=== PATIENT | female | born 1980 | race Caucasian/White ===

== ENCOUNTER 2017-09-13 12:24 | Emergency (ER) | payer OTHER, SELFPAY ==
[2017-09-13 12:25] VITALS: BP 169/110; PULSE 80; RESP 16; O2SAT 97; BMI 26.6
--- NOTE | 2017-09-13 12:40 | RAD_ITS ---
STUDY: X-RAY CHEST REASON FOR EXAM: Female, 37 years old. Chest pain for 2 days TECHNIQUE: Single view of the chest was obtained COMPARISON: April 06, 2013 chest radiograph FINDINGS: No lung consolidation, pleural effusion or pneumothorax. Calcified granuloma in the left upper lobe. Cardiac size within normal limits. Osseous structures demonstrate no acute abnormalities. IMPRESSION: No evidence of focal airspace disease. Electronically Signed: Dewey Frazier, at 13:31 EDT Tel , Service support , RAD/Chest 1 View (Portable)
--- NOTE | 2017-09-13 12:40 | EKG12_ITS ---
Test Reason : CP Blood Pressure : / mmHG Vent. Rate : 076 BPM Atrial Rate : 076 BPM P-R Int : 142 ms QRS Dur : 084 ms QT Int : 392 ms P-R-T Axes : 068 025 026 degrees QTc Int : 441 ms Normal sinus rhythm Normal ECG Confirmed by VERN WALSH MD ([id number]), newspaper photo editor JAIR OCONNOR ([id number]) on 09/15/2017 2:10:52 PM Referred By: ABHIJEET Confirmed By:VERN WALSH MD
[2017-09-13] MEDS: Aspirin 81 MG TAB.CHEW 324 MG PO (12:46)
[2017-09-13] MEDS: 0.9% Normal Saline 1,000 ML 150 ML IV (12:46)
[2017-09-13 12:51] LABS: Absolute Lymphocyte Count 1.77 X10^3/ul (0.83-4.51); Absolute Neutrophil Count 4.3 X10^3/uL (2.0-7.7); Basophil# 0.02 X10^3/uL; Basophil% 0.3 % (0-1); Eosinophil# 0.17 X10^3/uL; Eosinophils% 2.6 % (0-5); Hematocrit 42.4 % (37-47); Lymphocyte # 1.77 X10^3/ul (4.0); Lymphocyte % 26.7 % (19-41); Mean Corpuscular Hgb 27.9 pg (27.0-32.0); Mean Corpuscular Volume 84.6 fL (81-99); Mean Platelet Vol. 11.2 fl (6.2-12.0); Neutrophil # 4.25 X10^3/uL (2.7-7.7); Neutrophil % 64.2 % (47-70); POSITIVE COUNT NO; POSITIVE DIFFERENTIAL NO; POSITIVE MORPHOLOGY NO; Platelet Count 283 K/mm3 (150-450); RBC Distribution Width CV 14.6 % (11.6-14.6); Red Blood Count 5.01 M/mm3 (4.2-5.4); White Blood Count 6.6 K/mm3 (4.4-11.0)
[2017-09-13 13:01] LABS: D-Dimer Quantitative (DVT/PE) < 0.27 FEU/ug/m (0.27-0.49)
[2017-09-13 13:07] LABS: Anion Gap 6 (5-15); BUN 7 mg/dL (7-18); BUN/Creat Ratio 8.8 RATIO (10-20); Calcium,Total 9.1 mg/dL (8.5-10.1); Chloride 107 mmol/L (98-107); Creatinine, Serum 0.79 mg/dL (0.55-1.02); EST Glomerular Filtration Rate 87 mL/min (>60); Est Glom Filt Rate - Afr Amer 105 mL/min (>60); Estimated Creatinine Clearance 94.82 ml/min; Glucose 102 mg/dL (74-106); Potassium 3.4 mmol/L (3.5-5.1); Sodium Level 140 mmol/L (136-145)
--- NOTE | 2017-09-13 13:42 | ED.VISSUMM ---
- ER Visit Summary Date of Service: 09/13/17 Chief Complaint: Chest pain [] History of Present Illness: The patient is a 37 F [presents the emergency department chest discomfort that started 2 days ago. Patient had intermittent symptoms for the last 2 days lasting anywhere from a few seconds up to 20 minutes. Symptoms are not brought on by activity or exertion. She describes kind of a cold sensation and a burning initially started in the right side of her chest and now has migrated to the left side of her chest and into her left arm. Patient denies any shortness of breath. She denies any nausea or vomiting. She denies any diaphoresis. Patient initially thought it might be indigestion so she took Prilosec which really did not seem to help her symptoms. Patient had similar symptoms years ago that seemed to just resolve on their own.] Physical Examination: [HEENT-PERRLA, EOMI. Cranial nerves II through XII grossly intact. TMs clear. Mucous membranes moist. No adenopathy. Cardiovascular-regular rate and rhythm without murmur or ectopy Lungs-clear to auscultation, chest wall stable without crepitus or subcu emphysema Abdomen-normoactive bowel sounds, soft, nontender, no rebound or rigidity, no peritoneal signs. Extremities-intact ?4, normal range of motion, normal pulses, atraumatic] Test Results: [EKG obtained arrival shows sinus rhythm with a ventricular rate of 76 bpm with no acute ST segment changes. CBC with differential was normal. Chemistries were normal. Troponin was less than 0.02. D-dimer was normal less than 0.27. Chest x-ray showed nothing acute.] Emergency Department Course and Treatment: [While in the emergency department patient did receive aspirin.] Treatment Plan: [Patient's ANTONIO risk score is a 0. Her chest pain is atypical and this point do not feel it is cardiac. Patient advised to follow-up with her primary care physician within next 3-5 days.] Disposition: [Discharged home in stable condition. Patient advised to return if worsening pain, increasing shortness of breath, or condition should worsen in any way.] Impression: [Chest pain-atypical] This note was generated with [employer] software. It may contain incorrect words, spelling, and punctuation that were not noted in review of the chart prior to signing ED Disposition - Plan for ED Patient: Chief Complaint: Chest Pain Referrals: Stanley Jean Baptiste DO [Primary Care Provider] -
--- NOTE | 2017-09-13 13:45 | ED.DEP ---
ED Disposition - Plan for ED Patient: Chief Complaint: Chest Pain Instructions: ED Chest Pain Atypical Unkn Cause Referrals: Stanley Jean Baptiste DO [Primary Care Provider] - 3-5 Days
[2017-09-13 14:10] VITALS: BP 146/69; PULSE 63; RESP 16; O2SAT 98
== END 2017-09-13 14:14 | disposition home or self-care (01) ==
LOC: ED 12:50
PROVIDERS: Emergency Provider Emergency Medicine; Family Provider Student in an Organized Health Care Education/Training Program; PCP Student in an Organized Health Care Education/Training Program
DX: R07.89 Other chest pain (principal); I10 Essential (primary) hypertension; E78.00 Pure hypercholesterolemia, unspecified
CPT/HCPCS: 71045; 80048; 84484; 85025; 85379; 93005; 96360; 99284; J7030; A4216

== ENCOUNTER 2018-03-09 09:03 | Emergency (ER) | payer OTHER, SELFPAY ==
[2018-03-09 09:04] VITALS: BP 137/88; PULSE 79; RESP 14; TEMP 36.7; O2SAT 98; BMI 26.8
--- NOTE | 2018-03-09 09:27 | EKG12_ITS ---
Test Reason : CP Blood Pressure : / mmHG Vent. Rate : 067 BPM Atrial Rate : 067 BPM P-R Int : 142 ms QRS Dur : 082 ms QT Int : 422 ms P-R-T Axes : 071 026 038 degrees QTc Int : 445 ms Normal sinus rhythm Normal ECG Confirmed by ELENI STEPHENS, CIARA ([id number]), book or script editor JAIR OCONNOR ([id number]) on 03/12/2018 1:03:29 PM Referred By: SAM/VIOLETA Confirmed By:CIARA KNOWLES MD
--- NOTE | 2018-03-09 09:27 | RAD_ITS ---
STUDY: X-RAY CHEST REASON FOR EXAM: Female, 37 years old. Several day history of left-sided chest pain. TECHNIQUE: PA and lateral views of the chest. COMPARISON: Comparison is made with prior examination dated September 13, 2017. FINDINGS: The lungs are clear and expanded. Scattered calcified granulomas. There is no demonstrated pleural abnormality. Normal size heart. Normal mediastinum and geoff. Normal visualized pulmonary arteries. Normal visualized aortic arch and descending thoracic aorta. Normal visualized thoracic spine. Normal visualized ribs, clavicles, and shoulders. There is no demonstrated abnormality of the visualized soft tissue structures of the upper abdomen. RAD/Chest PA and Lateral IMPRESSION: Normal x-ray examination of the chest. Electronically Signed: Derrell Casey MD at 10:33 EDT Tel [phone], Service support ,
[2018-03-09] MEDS: Aspirin 81 MG TAB.CHEW 324 MG PO (09:39)
[2018-03-09 09:58] LABS: Absolute Lymphocyte Count 2.02 X10^3/ul (0.83-4.51); Absolute Neutrophil Count 3.3 X10^3/uL (2.0-7.7); Basophil# 0.01 X10^3/uL; Basophil% 0.2 % (0-1); Eosinophil# 0.19 X10^3/uL; Eosinophils% 3.2 % (0-5); Hematocrit 42.8 % (37-47); Lymphocyte # 2.02 X10^3/ul (4.0); Lymphocyte % 33.7 % (19-41); Mean Corp Hgb Conc 32.7 g/gl (32-36); Mean Corpuscular Hgb 28.9 pg (27.0-32.0); Mean Corpuscular Volume 88.4 fL (81-99); Mean Platelet Vol. 11.4 fl (6.2-12.0); Monocyte# 0.49 X10^3/uL; Monocyte% 8.2 % (0-10); Neutrophil # 3.28 X10^3/uL (2.7-7.7); Neutrophil % 54.5 % (47-70); POSITIVE COUNT NO; POSITIVE DIFFERENTIAL NO; POSITIVE MORPHOLOGY NO; Platelet Count 297 K/mm3 (150-450); RBC Distribution Width CV 13.4 % (11.6-14.6); RBC Distribution Width SD 43.3 fl (35.1-43.9); Red Blood Count 4.84 M/mm3 (4.2-5.4)
[2018-03-09 10:08] LABS: Anion Gap 6 (5-15); BUN 13 mg/dL (7-18); BUN/Creat Ratio 16.3 RATIO (10-20); Calcium,Total 8.8 mg/dL (8.5-10.1); Chloride 104 mmol/L (98-107); EST Glomerular Filtration Rate 86 mL/min (>60); Est Glom Filt Rate - Afr Amer 104 mL/min (>60); Estimated Creatinine Clearance 93.63 ml/min; Glucose 87 mg/dL (74-106); Potassium 3.4 mmol/L (3.5-5.1); Sodium Level 138 mmol/L (136-145)
--- NOTE | 2018-03-09 10:45 | ED.DCSUM_ITS ---
- ER Visit Summary Date of Service: 03/09/18 Chief Complaint: Chest pain History of Present Illness: The patient is a 37 F presenting for evaluation secondary chest pain. Patient reports that over the course the last 5 days she has been dealing with chest pain. She reports that this is been relatively con tinuous. It is no exacerbating relieving factors. She reports that it is a left-sided and substernal continuous aching stabbing type sensation. Associated with some mild nausea. She denies any shortness of breath associated with this. Patient denies any overlying skin rashes recent infectious signs or symptoms such as fever cough. She reports that she had been taking some antacids for this that had not really alleviated the symptoms. Physical Examination: Vital signs are within normal limits, patient is afebrile. General: Patient is well-nourished well-developed and in no acute distress. Head: Normocephalic, atraumatic Eyes: Pupils equal round and reactive bilaterally, extra occular motion intact bialterally ENT: Moist mucous membranes Neck: Supple, no lymphadenopathy, no JVD, no meningismus CVS: Heart regular rate and rhythm, no murmurs, rubs or gallops, radial pulses 2+ bilaterally Resp: Respirations nondistressed, lung sounds clear bilaterally Abdomen: Soft, nontender, nondistended, no palpable masses, normal bowel sounds Back: Nontender Extremities: Nontender, atraumatic, active full range of motion, no peripheral edema Skin: warm, no rashes, no petechia Neuro: Alert and oriented x 4, CN 2-12 intact, no lateralizing neurological defecits Psyc: Normal affect Test Results: EKG demonstrates sinus rhythm at [address] segments normal T waves normal intervals no evidence of WPW or Brugada morphology. CBC chemistry and troponin are negative. PA and lateral chest x-ray are found to be within normal limits per my personal interpretation. Emergency Department Course and Treatment: Patient presented for evaluation secondary chest pain. Patient is relatively low risk that she has been having continuous pain for 5 days I believe she can be ruled out with a single troponin. Workup as noted above is negative. Patient's heart score is 1. I do not believe that further cardiac workup is indicated. Patient is PERC negative do not believe that there is any indication for workup for pulmonary embolism. Patient likely has an element of potentially some costochondritis. She will be started on a course of NSAIDs. She will follow-up with primary care. Disposition: Discharge Impression: 1. Chest pain This note was generated with [employer] dictation software. It may contain incorrect words, spelling, and punctuation that were not noted in review of the chart prior to signing ED Disposition - Plan for ED Patient: Disposition: Home or Assisted Living Chief Complaint: Chest Pain Diagnosis: Costochondral chest pain Instructions: ED Chest Pain Costochondritis Prescriptions: Naproxen [Naprosyn] 500 mg PO BID PRN #20 tab Referrals: Stanley Jean Baptiste DO [Primary Care Provider] - 1-2 Weeks
[2018-03-09 10:58] VITALS: BP 140/92; PULSE 62; RESP 16; O2SAT 100
== END 2018-03-09 11:02 | disposition home or self-care (01) ==
PROVIDERS: Emergency Provider Emergency Medicine; Family Provider Student in an Organized Health Care Education/Training Program; PCP Student in an Organized Health Care Education/Training Program
DX: R07.89 Other chest pain (principal); I10 Essential (primary) hypertension; E78.00 Pure hypercholesterolemia, unspecified; D68.51 Activated protein C resistance; Z79.899 Other long term (current) drug therapy
CPT/HCPCS: 71046; 80048; 84484; 85025; 93005; 99285; A4216

== ENCOUNTER → 2018-07-21 13:28 | Outpatient (CLI) | payer OTHER, SELFPAY ==
[2018-07-27 11:27] LABS: HPV HC, High Risk Negative (Negative)
== END ==
PROVIDERS: Visit Provider Obstetrics & Gynecology
DX: Z12.4 Encounter for screening for malignant neoplasm of cervix (principal)
CPT/HCPCS: 87624; 88175; G0145

== ENCOUNTER → 2020-11-02 07:15 | Outpatient (CLI) | payer OTHER, SELFPAY ==
--- NOTE | 2020-11-02 07:40 | BI_ITS ---
MAMMOGRAPHY - BILATERAL SCREENING REASON FOR EXAM: Female, 40 years old. Routine annual screening examination. PERTINENT HISTORY: Non-contributory. TECHNIQUE: Digital bilateral breast suzie (3D mammographic acquisition) in the CC and MLO projections. 2-D mediolateral oblique (MLO) and craniocaudad (CC) views of both breasts were obtained. CAD: Full Field Digital Mammography with Computer Added Detection was performed. COMPARISON: None. Baseline examination. FINDINGS: Breast Composition: The breasts are heterogeneously dense, which may obscure small masses. There are no dominant masses or suspicious calcifications. No other significant abnormalities are identified. BI/SCRN MAMM (CAD)W/SUZIE BILAT IMPRESSION: Negative screening mammogram. Yearly followup mammogram recommended. (A) ASSESSMENT CATEGORY: BIRADS Category 1: Negative. A letter regarding these results will be sent to the patient by the facility within 30 days. Approximately 10% of breast cancers are not detected by mammography. A normal mammogram should not delay biopsy of a clinically suspicious abnormality. [id number] Electronically Signed: Derrell Casey MD at 8:31 EDT , Service support ,
== END ==
PROVIDERS: PCP Student in an Organized Health Care Education/Training Program; Referring Provider Obstetrics & Gynecology; Visit Provider Obstetrics & Gynecology
DX: Z12.31 Encounter for screening mammogram for malignant neoplasm of breast (principal)
CPT/HCPCS: 77063; 77067

== ENCOUNTER → 2021-01-14 17:07 | Outpatient (CLI) | payer OTHER, SELFPAY ==
[2021-01-18 20:12] LABS: HPV APTIMA, High Risk Negative (Negative)
== END ==
PROVIDERS: PCP Student in an Organized Health Care Education/Training Program; Visit Provider Obstetrics & Gynecology
DX: Z12.4 Encounter for screening for malignant neoplasm of cervix (principal)
CPT/HCPCS: 87624; 88175; G0145

== ENCOUNTER → 2022-06-20 | Outpatient (CLI) | payer OTHER, SELFPAY ==
--- NOTE | 2022-06-20 08:28 | BI_ITS ---
MAMMOGRAPHY - BILATERAL SCREENING REASON FOR EXAM: Female, 41 years old. Routine annual screening examination. PERTINENT HISTORY: Non-contributory. TECHNIQUE: Digital bilateral breast suzie (3D mammographic acquisition) in the CC and MLO projections. 2-D mediolateral oblique (MLO) and craniocaudad (CC) views of both breasts were obtained. CAD: Full Field Digital Mammography with Computer Added Detection was performed. COMPARISON: Comparison is made with prior study dated 11/02/2020. FINDINGS: Breast Composition: The breasts are heterogeneously dense, which may obscure small masses. There are no dominant masses or suspicious calcifications. No other significant abnormalities are identified. There has been no significant change since the prior study. BI/SCRN MAMM (CAD)W/SUZIE BILAT IMPRESSION: Stable bilateral screening mammogram. Yearly follow-up mammogram recommended. (A) ASSESSMENT CATEGORY: BIRADS Category 1: Negative. A letter regarding these results will be sent to the patient by the facility within 30 days. Approximately 10% of breast cancers are not detected by mammography. A normal mammogram should not delay biopsy of a clinically suspicious abnormality. [id number] Electronically Signed: Derrell Casey MD at 10:26 EST ,
== END | disposition home or self-care (01) ==
LOC: OPBI 08:27
PROVIDERS: PCP Student in an Organized Health Care Education/Training Program; Referring Provider Nurse Practitioner Women's Health; Visit Provider Nurse Practitioner Women's Health
DX: Z12.31 Encounter for screening mammogram for malignant neoplasm of breast (principal)
CPT/HCPCS: 77063; 77067

== ENCOUNTER → 2023-11-25 | Outpatient (CLI) | payer OTHER, SELFPAY ==
[2023-11-30 21:07] LABS: HPV APTIMA, High Risk Negative (Negative)
== END | disposition home or self-care (01) ==
PROVIDERS: PCP Student in an Organized Health Care Education/Training Program; Referring Provider Nurse Practitioner Family; Visit Provider Nurse Practitioner Family
DX: Z12.4 Encounter for screening for malignant neoplasm of cervix (principal)
CPT/HCPCS: 87624; 88175; G0145

== ENCOUNTER → 2023-12-08 | Outpatient (CLI) | payer OTHER, SELFPAY ==
[2023-12-08 16:18] LABS: hCG Titer Quant., Serum 725 mIU/mL (1-3)
== END | disposition home or self-care (01) ==
LOC: LAB 14:09
PROVIDERS: PCP Student in an Organized Health Care Education/Training Program; Visit Provider Nurse Practitioner Women's Health
DX: O09.299 Supervision of pregnancy with other poor reproductive or obstetric history, unspecified trimester (principal); Z3A.00 Weeks of gestation of pregnancy not specified
CPT/HCPCS: 36415; 84702

== ENCOUNTER → 2023-12-10 | Outpatient (CLI) | payer OTHER, SELFPAY ==
[2023-12-10 10:02] LABS: hCG Titer Quant., Serum 1176 mIU/mL (1-3)
== END | disposition home or self-care (01) ==
LOC: LAB 08:27
PROVIDERS: PCP Student in an Organized Health Care Education/Training Program; Visit Provider Nurse Practitioner Women's Health
DX: O09.299 Supervision of pregnancy with other poor reproductive or obstetric history, unspecified trimester (principal); Z3A.00 Weeks of gestation of pregnancy not specified
CPT/HCPCS: 36415; 84702

== ENCOUNTER → 2023-12-21 | Outpatient (CLI) | payer OTHER, SELFPAY ==
--- NOTE | 2023-12-21 07:29 | US_ITS ---
HISTORY: viability. LMP 11/04/2023. TECHNIQUE: Transvaginal pelvic ultrasound was performed. 104 images. COMPARISON: None. FINDINGS: UTERUS: 10.4 x 5.1 x 9.2 cm. RIGHT OVARY: 1.6 x 1.7 x 1.9 cm. No adnexal masses. LEFT OVARY: 2 x 2 x 3.1 cm. 1.2 cm corpus luteal cyst. FREE FLUID: None. INTRAUTERINE GESTATIONAL SAC: Single. Mean sac diameter 1.5 cm corresponding to 6 weeks 2 days. YOLK SAC: 3 mm cyst. POLE: [place]-rump length 6 mm corresponding to 6 weeks 4 days. ESTIMATED DELIVERY DATE: 08/12/2024. HEART MOTION: 117 bpm. US/Transvaginal w/Preg US IMPRESSION: Single intrauterine with an estimated gestational age of 6 weeks 4 days and heart motion demonstrated. Electronically Signed: Deepti George MD at 8:43 EDT ,
== END | disposition home or self-care (01) ==
LOC: US 07:28
PROVIDERS: PCP Student in an Organized Health Care Education/Training Program; Referring Provider Obstetrics & Gynecology; Visit Provider Obstetrics & Gynecology
DX: O09.299 Supervision of pregnancy with other poor reproductive or obstetric history, unspecified trimester (principal); Z3A.00 Weeks of gestation of pregnancy not specified
CPT/HCPCS: 76817

== ENCOUNTER → 2024-01-11 | Outpatient (CLI) | payer OTHER, SELFPAY ==
[2024-01-14 06:09] LABS: Chlamydia By Nucleic Acid AMP Negative (Negative); Gonococcus By Nucleic Acid AMP Negative (Negative)
== END | disposition home or self-care (01) ==
LOC: LABSPEC 17:07
PROVIDERS: PCP Student in an Organized Health Care Education/Training Program; Referring Provider Obstetrics & Gynecology; Visit Provider Obstetrics & Gynecology
DX: O09.90 Supervision of high risk pregnancy, unspecified, unspecified trimester (principal); Z3A.00 Weeks of gestation of pregnancy not specified
CPT/HCPCS: 87491; 87591

== ENCOUNTER 2024-01-12 10:34 | Day surgery (SDC) | payer OTHER, SELFPAY ==
[2024-01-12] VITALS (7 sets, daily range): BP systolic 110–132; BP diastolic 68–83; PULSE 74–85; RESP 16–20; TEMP 36.6–37; O2SAT 96–98; BMI 27.9
--- NOTE | 2024-01-12 10:50 | HP.PCM_ITS ---
History and Physical Date of Admission: 01/12/24 Intake Vital Signs 11/25/2415:21 01/10/2414:19 01/10/2414:19 Height 5 ft 6 in 5 ft 6 in 5 ft 6 in Weight: 177 lb 8 oz BMI 28.6 BP 131/83 H Intake Visit Reasons: new ob Nitroglycerin Supervisor Required: No Is patient in pain?: No Allergies No Known Allergies Allergy (Verified 01/11/24 14:18) Medications ?Medication ?Instructions ?Recorded ?Confirmed ?Type cholecalciferol (vitamin D3) 50 5,000 unit PO DAILY 03/12/22 01/05/24 History mcg (2,000 unit) capsule lisinopril 10 mg tablet 20 mg PO DAILY 03/12/22 01/05/24 History vitamin B complex (B 1 tab PO DAILY 03/12/22 01/05/24 History Complex-Vitamin B12 tablet) fluoxetine 10 mg capsule 60 mg PO DAILY 11/25/23 01/05/24 History PNV 153-FA 400 mcg-om3 35 mg-dha tab PO DAILY 01/05/24 01/05/24 History 25 mg-epa 5 mg-fish oil chew tablet Last Menstrual Period: 11/04/23 Zika: Zika virus screening: Negative : No PFSH PFSH Medical History Seasonal allergies Vitamin D deficiency Hypertension Missed with demise before 20 completed weeks of gestation Surgical History H/O dilation and curettage History of tonsillectomy Family History Mother Heart disease Social History adopted: No household members: spouse and children number of children: 2 current occupational status: employed current occupation: [employer] Representative current occupational exposures/hazards: No pets and animals: Yes pets and animals: dog(s) history of recent travel: Yes ([place] in November) out of state: Yes out of country: No sexually active: Yes Smoking Status: Never smoker alcohol intake: never substance use type: does not use well-balanced diet: daily or most days caffeine: Yes Type: coffee Number of servings: 1 eating out: 1-3 times/week during the past year weight has: decreased > 10 lbs what type of physical activity do you participate in: walking frequency: 1-2 times per week duration: 15-30 minutes/day rich/yarsanism: None seatbelt use: always do you feel safe at home: Yes additional social history: Jorge- Dentist History 9 Elective abortions Hx Para 2 Spontaneous abortions 6 Hx # Term Pregnancies Ectopic pregnancies Hx # Pregnancies Multiple births # of living children 2 Past Pregnancies Del. Date Name GA/Weeks Outcome Route Bth Weight Gen Labor Lgth Anesthesia Del Locatn Provider FOB 07/04/08 Mateus 39 live - full term 8#6oz [facility] epidural [facility] Jorge 06/18/10 Fabrizio 38 live - full term 8#2oz Mal [facility] Delivery Date: 07/04/08 Last Updated by: [place] Virk elective [facility] Delivery Date: 06/18/10 Last Updated by: [place] Virk elective [facility] HPI new ob Details: NANNTETE FORD is a 43 year old @ 9 weeks 6 days iup who presents for New OB visit. Unfortunately upon exam, there appears to be no heart tones. She is now electing for a suction dilation and curettage. She has known factor V leiden deficiency and has a history of 6 prior miscariages. OB Visit FERNIE Calculator Estimated Delivery Date Method Current WG Current Estimate 08/10/24 LMP (Certain) 9w 5d Comments: HIV: Urine Culture: Sequential Screen: NIPT Screen: Estimated Due Date: 08/10/24 Menstrual History Last Menstrual Period: 11/04/23 Reported LMP: definite Normal amount/duration: Yes Frequency in days: 27-29 On hormonal BC at conception: No hCG+: 12/02/23 Antepartum Record Genetic Screening: Congenital Heart Defect: Other, Neural Tube Defect: Other, Hemoglobinopathy Or Carrier: Patient (Factor V), Cystic Fibrosis: Other, Chromosome Abnormality: Other, Sen-Sachs: Other, Hemophilia: Other, Intellectual Disability/Autism: Other, Recurrent Loss/Stillbirth: Patient (6 miscarriages), Other Structural Defect: Other, Other Genetic Disease: Other and Maternal Metabolic Disorder: Other Infection History: Live with someone with TB or Exposed to TB: No, Patient or Partner has history of Genital Herpes: No, Rash or Viral illness since last mentrual period: No, Prior GBS-Infected child: No, History of STD: No, HIV Infection: No, History of Hepatitis: No, Recent travel outside of [place]: No, Concern for hepatitis exposure: No, Varicella immune: Yes (immune) and Covid Vaccinated: Yes (Moderna, 1 Booster) Medical History Medical History: Positive: Hypertension, Psychiatric (anxiety), Seasonal allergies, Body Masker surgery (LEEP 1999, 3 D&C's), Operations/hospitalizations (Tonsilectomy), History of abnormal pap (1999. last pap 11/2023 Neg/Neg) and Other (stress incontinence) and Negative: Diabetes, Heart disease, Auto-immune disorder, Kidney disease/UTI, Neurologic/epilepsy, Depression/ depression, Hepatitis/liver disease, Varicosities/phlebitis, Thyroid dysfunction, Trauma/domestic violence, History of blood transfusions, D (Rh) Sensitized, Pulmonary (e.g.,TB,Asthma), Drug/latex allergies/reactions, Breast, Anesthetic complications, Uterine anomaly/obdulia, Infertility, Anti-retroviral treatment and Relevant family history ACOG First Trimester First Trimester: Discussed ROS Const All systems reviewed & are unremarkable except as noted in H Resp Reports system reviewed and no additional complaints, except as documented and Denies cough GI Reports as per HPI Psych Reports system reviewed and no additional complaints, except as documented Exam Const General: cooperative, healthy appearing, comfortable and no acute distress Resp Effort & Inspection: normal respiratory effort General: bimanual renal exam normal bilaterally External Female Exam: normal appearance of the urethra Urethra: normal appearance of the urethra Speculum Exam - Vagina: normal appearance of the vagina Speculum Exam - Cervix: normal appearance of the cervix Bimanual Exam- Adnexa, other: normal adnexae and normal Pelvic Support: normal Skin General: no rashes or lesions noted Psych Appearance: grossly normal Speech and Movement: speech and movement normal Coding Level of Care Code OB Routine Diagnoses Factor V deficiency D68.2 Anxiety F41.9 Supervision of high-risk O09.90 Z34.90 Advanced maternal age (AMA), 40 years or greater Early stage of Z34.90 History of miscarriage, currently O09.299 Mixed stress and urge urinary incontinence N39.46 Migraine with aura and without status migrainosus, not intractable G43.109 Intractability: not intractable Status migrainosus presence: without status migrainosus Vitamin D deficiency E55.9 Hypertension, unspecified type I10 Hypertension type: unspecified Assessment and Plan Assessment and Plan (1) Factor V deficiency: Status: Acute (2) Anxiety: Status: Acute (3) Supervision of high-risk : Status: Acute Comment: , FERNIE 08/10/24, PC MateusFabrizio mercado, Jorge (4) : Status: Acute Comment: elects NIPT- NO GENDER (5) Advanced maternal age (AMA), 40 years or greater: Status: Acute (6) Early stage of : Status: Acute (7) History of miscarriage, currently : Status: Acute Comment: 6 miscarriages- Two 2nd trimester losses (8) Mixed stress and urge urinary incontinence: Status: Acute (9) Migraine with aura: Status: Acute Qualifiers: Intractability: not intractable Status migrainosus presence: without status migrainosus Qualified Code(s): G43.109 - Migraine with aura, not intractable, without status migrainosus (10) Vitamin D deficiency: Status: Acute (11) Hypertension: Status: Chronic Qualifiers: Hypertension type: unspecified Qualified Code(s): I10 - Essential (primary) hypertension Orders: Orders CBC W/Diff, Automated 01/05/24 O09.90 - Supervision of high risk , unspecified, unspecified trimester Type & Screen 01/05/24 O09.90 - Supervision of high risk , unspecified, unspecified trimester Plan After discussing the patient's diagnosis and treatment plan options, patient wishes to proceed with surgical management. I have discussed with the patient the risks, benefits, and alternatives of the procedure which include but are not limited to risks of anesthesia, bleeding, infection, possible damage to bowel, bladder, or surrounding vasculature which could lead to additional surgery to evaluate any complications. Patient agrees to procedure and wishes to proceed. ACOG/uptodate references given for additional information regarding procedure. plan suction dilation and curettage.
[2024-01-12] MEDS: Doxycycline 100 MG CAPSULE PO (11:10)
[2024-01-12] MEDS: Lactated Ringers 1,000 ML 15 ML IV (11:10)
[2024-01-12 11:14] LABS: Hematocrit 38.4 % (37-47); Hemoglobin 12.6 g/dL (12.0-15.0); Mean Corp Hgb Conc 32.8 g/dL (32-36); Mean Corpuscular Hgb 29.7 pg (27.0-32.0); Mean Corpuscular Volume 90.6 fL (81-99); Mean Platelet Vol. 10.2 fl (6.2-12.0); Platelet Count 312 K/mm3 (150-450); RBC Distribution Width CV 13.9 % (11.6-14.6); RBC Distribution Width SD 46.2 fl (35.1-43.9); Red Blood Count 4.24 M/mm3 (4.2-5.4); White Blood Count 7.5 K/mm3 (4.4-11.0)
--- NOTE | 2024-01-12 11:50 | PCM.PRE.AN2 ---
ASA Classification* ASA Classification ASA Classification: 2 Assessment & Plan Anesthesia* Anesthesia Assessment Anesthesia Assessment: Discussed sedation and/or anesthesia options, risks, benefits, and alternatives with patient/parents/legal guardian/POA. Questions invited. The patient/parents/legal guardian/POA seems to understand and agrees to proceed with anesthesia plan. Reviewed the physical assessment, medical history, allergy history and patient home medications list prior to surgery/procedure/anesthetic and documented any changes. Performed airway and anesthesia risk assessments. Anesthesia Type Anesthesia Type: MAC History Source History Obtained from:: Patient and Chart Anesthesia Focused Assessment* Oxygen Delivery Method: Room Air Airway Assessment Mouth opens: >3 cm Mallampati Score: II Teeth Condition: Intact Neck Range of motion (ROM): Full ROM Focused Labs Anesthesia Preop lab: CBC WBC 7.5 K/mm3 (4.4-11.0) 01/12/24 11:03 RBC 4.24 M/mm3 (4.2-5.4) 01/12/24 11:03 Hgb 12.6 g/dL (12.0-15.0) 01/12/24 11:03 Hct 38.4 % (37-47) 01/12/24 11:03 Plt Count 312 K/mm3 (150-450) 01/12/24 11:03 CHEMISTRY Potassium 3.4 mmol/L (3.5-5.1) L 03/09/18 09:10 Sodium 138 mmol/L (136-145) 03/09/18 09:10 BUN 13 mg/dL (7-18) 03/09/18 09:10 Creatinine 0.80 mg/dL (0.55-1.02) 03/09/18 09:10 Glucose 87 mg/dL (74-106) 03/09/18 09:10 TSH 1.32 uIU/mL (0.358-3.74) 12/25/16 10:59 COAG PT 13.0 SECONDS (11.7-14.9) 01/22/17 11:05 HCG, Quant 1176 mIU/mL (1-3) H 12/10/23 08:28 Pre-Assessment Diagnosis/Proposed Procedure Planned Operative Procedure(s): D&C SUCTION Anesthesia History Anesthesia History - sales development consultant: Anesthesia History - sales development consultant Hx Hospitalization No 01/11/24 15:33 Any Problems With Anesthesia No 01/11/24 15:33 Cholinesterase deficiency No 01/11/24 15:33 You/Your Family Experience No 01/11/24 15:33 fever (hyperthermia) with Relationship Recent Exposure to Contagious No 01/22/17 10:55 Disease Does patient have nerve No 01/11/24 15:33 stimulator Patient instructed to have device shut off --Does patient have Pacemaker or ICD? When Was Last Pacemaker Check QUESTION #4 FULL TEXT: You/Your Family Experience fever (hyperthermia) with Anesthesia Last Oral Intake Last Oral intake: Last Oral Intake NPO since Meds taken in AM with sips of water? Meds patient instructed to take am of surgery Any additional information?: Yes NPO since: 00:00 PONV PONV - sales development consultant: PONV - sales development consultant Female Yes 01/11/24 15:33 HX of Motion Sickness No 01/11/24 15:33 HX of N/V After Surgery No 01/11/24 15:33 Non-Smoker Yes 01/11/24 15:33 Duration of Surgery greater No 01/11/24 15:33 than 60 minutes Number of Risk Factors 2 01/11/24 15:33 PONV Score Moderate Risk 01/11/24 15:33 Height & Weight Height & Weight: Anesthesia: Height & Weight Height 5 ft 6 in 01/11/24 14:19 Respiratory Assessment Respiratory Assessment - sales development consultant: Respiratory Tract Infection Hx - sales development consultant Hx Respiratory Tract Infection No 01/11/24 15:33 STOP Sleep Apnea STOP Sleep Apnea - sales development consultant: STOP Sleep Apnea - sales development consultant Hx Hypertension Yes: CONTROLLED WITH MED 01/11/24 15:33 Hx Sleep Apnea No 01/11/24 15:33 CPAP BIPAP Do you snore loudly (louder No 01/11/24 15:33 than talking or can be heard Do you often feel tired/ No 01/11/24 15:33 fatigued/ sleepy during daytime? Has anyone observed you stop No 01/11/24 15:33 breathing during sleep? STOP Results Negative 01/11/24 15:33 QUESTION #5 FULL TEXT : Do you snore loudly (louder than talking or can be heard through closed doors)? Tobacco Use History Tobacco Use History - sales development consultant: Tobacco Use History - sales development consultant Tobacco Use Smoking Status Never smoker 01/11/24 15:33 Hx Tobacco Use No 01/11/24 15:33 Years Smoking Packs Smoked per Day Smoking Cessation Date was within the last 15 years Hx Smoking Cessation Date Hx Smoking Cessation Counseling Hematologic Medial History Hematologic Hx - sales development consultant: Hematologic Medical Hx - manager garden Hx of Blood Transfusion Yes 01/11/24 15:33 Hx of Transfusion in last 3 No 01/11/24 15:33 Months Date of Last Transfusion (if within last 3 months) Ever experience any problems No 01/11/24 15:33 with transfusion(s)? Specify any problems Hx of Preganancy in last 3 Yes 01/11/24 15:33 Months Nurse Filling Out Transfusion DSCHRIBER 01/11/24 15:33 & Questions: Date: 01/11/24 01/11/24 15:33 Time: 15:34 01/11/24 15:33 Patient unable to answer at this time (ie. confused, unrespo /Reproduction History /Reproductive History - sales development consultant: /Reproductive Hx- sales development consultant Hx Now Yes 01/11/24 15:33 Gestational Age (in weeks): EDC: Hx Hx Para Hx Section SAB No 01/11/24 15:33 Active Medications Active Medications: Current Medications Generic Name Dose Route Start Last Admin Trade Name Freq PRN Reason Stop Dose Admin Doxycycline Monohydrate 100 mg 01/12/24 09:30 01/12/24 11:10 Doxycycline 100 Mg Capsule PO 100 mg X1 TAMICA Administration Lactated Ringer's 1,000 mls @ 15 mls/hr 01/12/24 11:00 01/12/24 11:10 IV 15 mls/hr .Q48H TAMICA Administration PFSH Medical History Wears contact lenses Wears glasses Anxiety Migraine headache Non-smoker Seasonal allergies Vitamin D deficiency Hypertension Missed with demise before 20 completed weeks of gestation Home Medications ?Medication ?Instructions ?Recorded ?Last Taken ?Type cholecalciferol (vitamin D3) 50 5,000 unit PO DAILY 03/12/22 01/11/24 History mcg (2,000 unit) capsule lisinopril 10 mg tablet 20 mg PO DAILY 03/12/22 01/11/24 History vitamin B complex (B 1 tab PO DAILY 03/12/22 01/11/24 History Complex-Vitamin B12 tablet) fluoxetine 10 mg capsule 60 mg PO DAILY 11/25/23 01/11/24 History PNV 153-FA 400 mcg-om3 35 mg-dha 1 tab PO DAILY 01/05/24 01/11/24 History 25 mg-epa 5 mg-fish oil chew tablet Allergy/AdvReac Type Severity Reaction Status Date / Time No Known Allergies Allergy Verified 01/12/24 10:56 Family History Mother Heart disease Surgical History H/O dilation and curettage History of tonsillectomy Social History adopted: No household members: spouse and children number of children: 2 current occupational status: employed current occupation: [employer] Analyst current occupational exposures/hazards: No pets and animals: Yes pets and animals: dog(s) history of recent travel: Yes ([place] in November) out of state: Yes out of country: No sexually active: Yes Smoking Status: Never smoker alcohol intake: never substance use type: does not use well-balanced diet: daily or most days caffeine: Yes Type: coffee Number of servings: 1 eating out: 1-3 times/week during the past year weight has: decreased > 10 lbs what type of physical activity do you participate in: walking frequency: 1-2 times per week duration: 15-30 minutes/day rich/roman catholic: None seatbelt use: always do you feel safe at home: Yes additional social history: Jorge- Dentist Review of Systems (Anesthesia) ROS Narrative System reviewed and no additional complaints, except as documented.
--- NOTE | 2024-01-12 12:22 | PCM.DC ---
Discharge Instructions Diet Discharge Diet: No restrictions Activity Discharge Activity: Return to Normal Activity, May Shower and May Take a Tub Bath (after 1 week) May resume sexual activity in: 1-2 weeks Weight Bearing Status: Weight bearing as tolerated Lifting Restrictions: none Dressing / Incision Call your doctor if you observe: Fever of 101 or Higher, Using more than 1 pad per hour, Shortness of breath and Uncontrolled pain Follow Up Care Please Follow Up With: Leslie Rivas DO When: Call [phone] to schedule appointment. Test Results: Test results from this visit will be discussed in further detail at your follow-up appointment, if applicable. Discharge Plan Admission Primary Reason for Your Visit: dilation and curettage Attending Provider: Leslie Rivas Primary Care Provider: Stanley Jean Baptiste Instructions Print Language: [place] Islander Discharge Orders/Prescriptions Prescriptions: New ibuprofen 800 mg tablet 800 mg PO Q8H PRN (Reason: pain) Qty: 20 0RF oxycodone-acetaminophen [Percocet] 5-325 mg tablet 1 tab PO Q4H PRN (Reason: pain) 7 Days Qty: 5 0RF Rx Instructions: 1-2 tabs q 4 hrs as needed for pain Continued lisinopril 10 mg tablet 20 mg PO DAILY cholecalciferol (vitamin D3) 50 mcg (2,000 unit) capsule 5,000 unit PO DAILY vitamin B complex [B Complex-Vitamin B12] Tablet 1 tab PO DAILY PNV [id number] 400 mcg-35 mg- 25 mg-5 mg tablet,chewable 1 tab PO DAILY fluoxetine 10 mg capsule 60 mg PO DAILY Referrals / Follow Up: Stanley Jean Baptiste DO [Primary Care Provider] - Disposition Disposition (needs filled in before D/C Order can be placed): Home, Self Care
--- NOTE | 2024-01-12 12:40 | POC_PTH ---
PATIENT: NANNETTE FORD LOC: [facility] – [place] U#:[id number] AGE/SX: 43/F ROOM: RE01/12/[address]: Dr. Leslie Rivas DO : 1980 BED: DIS: 01/12/2024 SPEC #: [id number] RECD: 01/12/24 18:11 STATUS: LAKHWINDER FONTENOT #: [id number] MICHAEL: 01/12/24 12:[address]: Leslie Rivas DEPT: SURGICAL PATHOLOGY RECD BY: Peggy Mackay ENTERED: 01/13/24 11:45 SP TYPE: PROD CONC OTHR DR: Dr. Stanley Jean Baptiste DO Tissues: Product of conception, NOS Procedures: Surgery Specimen Level IV HEADER OPERATION: D&C, suction PRE-OP DIAGNOSIS: Missed TISSUE SUBMITTED: Products of conception MICROSCOPIC DIAGNOSIS Endometrium, curettage: Chorionic villi, decidualized stroma and trophoblastic cells (products of conception). AM:mr 01/14/2024 MICROSCOPIC DESCRIPTION Slides are reviewed. GROSS DESCRIPTION Received in fixative is one container labeled with the patient's name and designated Products of conception. The specimen consists of multiple irregular fragments of light lynch soft tissue that in aggregate measure 8.5 x 6.0 x 1.0 cm. parts are not grossly recognized. Dietary Aid portions are submitted in one cassette. AM. 01/13/2024 TC:5 CPT:18925
--- NOTE | 2024-01-12 13:00 | PCM.OPRPT ---
Problems Associated Problem List Diagnoses (1) Missed : Report of Operation Date of Procedure: 01/12/24 Pre-Operative Diagnosis: 43 y/o 8 week Missed Post-Operative Diagnosis: 43 y/o 8 week Missed Surgery/Procedure Performed:: suction dilation and curettage Description of Surgical Findings:: 10 cm size uterus, moderate POC. ultrasound after procedure showed empty uterus with thin endometrial stripe. Surgeon: Leslie Rivas marine steam fitter helper: None Type of Anesthesia: MAC Specimen's removed: products of conception Estimated Blood Loss (mL): 30cc Description of Procedure: Patient was taken to the operating room and placed under MAC local anesthesia. She was prepped and draped in the normal sterile fashion the dorsal lithotomy position. Bladder was drained of clear urine and anterior lip of the cervix was grasped and the uterus sounded to 10cm. Cervix was progressively dilated to allow passage of a 9 cm suction curette. Progressive passes were made removing the retained products of conception without complication. Sharp curettage confirmed complete removal of the retained products. Ultrasound was used to confirm a thin endometrium at the completion of the procedure. All instruments were removed from the vagina and excellent hemostasis was noted and the patient was taken to recovery in stable condition. Complications none Admit VTE Documentation VTE Present on Admission: Yes VTE Mechan Device Prophylaxis: SCD's VTE Pharm Prophylaxis ordered?: Yes Multi Select Codes Urinary/Genital Urinary/Genital CPT Codes: 53377 Surg Trtmt missed Ab 1TM
--- NOTE | 2024-01-12 13:08 | PCM.POST.ANE ---
Anesthesia: Postop Eval I Current Vital Signs Temperature: 97.8 F Pulse Rate: 85 Blood Pressure: 110/71 Respiratory Rate: 20 Pulse Ox: 96 Oxygen Delivery Method: Room Air Assessment Airway patent: Yes Spontaneous unlabored respirations: Yes Mental status: Awake nausea: No Vomiting: No Anesthesia Complication: No Fluid Hydration Crystalloid volume administer (ml): 500 Total IV fluid infused: 500 Progress Note Anesthesia document: Postop Eval 1 completed: Yes
--- NOTE | 2024-01-12 14:17 | POSTOPAN2_ITS ---
Anesthesia Postop Eval I Sum Postop Eval Completion status Anesthesia document: Postop Eval 1 completed: Yes Anesthesia Postop Eval I Summary Anesthesia Postop Eval I Summary: Anesthesia Postop Eval I: Assessment Summary Airway patent Yes 01/12/24 13:11 YARD [email or web address] Spontaneous unlabored Yes 01/12/24 13:11 YARD SPECIALIST.JDEF respirations Mental status Awake 01/12/24 13:11 YARD SPECIALIST.[email or web address] nausea No 01/12/24 13:11 YARD SPECIALIST.JDEF Vomiting No 01/12/24 13:11 YARD SPECIALIST.JDEF Anesthesia Postop Eval I: Fluid Summary Crystalloid volume administer 500 01/12/24 13:11 YARD SPECIALIST.JDEF (ml) Colloids volume administered ( ml) Blood Product volume administered (ml) Total IV fluid infused 500 01/12/24 13:11 YARD SPECIALIST.JDEF Anesthesia Postop Eval I: Summary Notes Anesthesia Complication No 01/12/24 13:11 YARD SPECIALIST.JDEF Anesthesia Complication Comment: Post-operative progress note Anesthesia: Postop Eval II Evaluation Mental status: Awake and Calm Pain Level: 1 nausea: No Vomiting: No Complications Anesthesia Complication: No
--- NOTE | 2024-01-12 14:17 | PCM.POSTANE2 ---
Anesthesia Postop Eval I Sum Postop Eval Completion status Anesthesia document: Postop Eval 1 completed: Yes Anesthesia Postop Eval I Summary Anesthesia Postop Eval I Summary: Anesthesia Postop Eval I: Assessment Summary Airway patent Yes 01/12/24 13:11 AIR BRAKE ADJUSTER.[email or web address] Spontaneous unlabored Yes 01/12/24 13:11 AIR BRAKE ADJUSTER.JDEF respirations Mental status Awake 01/12/24 13:11 AIR BRAKE ADJUSTER.JDEF nausea No 01/12/24 13:11 AIR BRAKE ADJUSTER.JDEF Vomiting No 01/12/24 13:11 AIR BRAKE ADJUSTER.JDEF Anesthesia Postop Eval I: Fluid Summary Crystalloid volume administer 500 01/12/24 13:11 AIR BRAKE ADJUSTER.JDEF (ml) Colloids volume administered ( ml) Blood Product volume administered (ml) Total IV fluid infused 500 01/12/24 13:11 AIR BRAKE ADJUSTER.JDEF Anesthesia Postop Eval I: Summary Notes Anesthesia Complication No 01/12/24 13:11 AIR BRAKE ADJUSTER.JDEF Anesthesia Complication Comment: Post-operative progress note Anesthesia: Postop Eval II Evaluation Mental status: Awake and Calm Pain Level: 1 nausea: No Vomiting: No Complications Anesthesia Complication: No
== END 2024-01-12 13:43 | disposition home or self-care (01) ==
LOC: SDC 10:35 → AC 10:36
PROVIDERS: PCP Student in an Organized Health Care Education/Training Program; Referring Provider Obstetrics & Gynecology; Visit Provider Obstetrics & Gynecology
PROC: (CPT 59820; principal; 2024-01-12 12:25)
DX: O02.1 Missed abortion (principal)
CPT/HCPCS: 59820; 01965; 85027; 86850; 86900; 86901; 88305; J7120; J2405